=== PATIENT | female | born 1975 | race Caucasian/White ===

== ENCOUNTER 2020-10-06 07:14 | Inpatient (IN) | payer OTHER ==
[~2020-10-06] VITALS: Ht 165.1 cm; Wt 76.2 kg
[~2020-10-06 07:14] MED LIST: ASPIRIN EC81 MG PO; BUPRENORPHIN-N1 EACH PO; LOPRESSOR 25 MG25 MG PO; MULTAQ 400 MG400 MG PO; NICOTINE PATCH1 EAC2 TD
[2020-10-06 08:17] LABS: HEMOGLOBIN 17.5 gm/dl (12.3-15.3); RED BLOOD COUNT 5.73 M/UL (4.00-5.10); WHITE BLOOD COUNT 4.2 K/UL (4.5-11.0)
[2020-10-06 08:39] LABS: BUN/CREATININE RATIO 10 (0-10)
[2020-10-06] MEDS ORDERED: SOTALOL80 MG PO (15:24)
[2020-10-07 10:29] LABS: HEMOGLOBIN 17.5 gm/dl (12.3-15.3); RED BLOOD COUNT 5.95 M/UL (4.00-5.10)
[2020-10-07 10:32] LABS: WHITE BLOOD COUNT 6.1 K/UL (4.5-11.0)
[2020-10-07 11:00] LABS: BUN/CREATININE RATIO 16 (0-10)
[2020-10-08 04:23] LABS: HEMOGLOBIN 17.3 gm/dl (12.3-15.3); RED BLOOD COUNT 5.72 M/UL (4.00-5.10)
[2020-10-08 04:30] LABS: WHITE BLOOD COUNT 10.9 K/UL (4.5-11.0)
[2020-10-08 04:41] LABS: BUN/CREATININE RATIO 25 (0-10)
[2020-10-08] MEDS ORDERED: ELIQUIS 5 MG TAB5 MG PO (14:54)
== END 2020-10-08 15:29 | disposition home or self-care (01) | DRG 308 ==
LOC: ER1 07:14 → CDU 10:45 → PROG CARE 10:45
PROVIDERS: Emergency Medicine; Physician Assistant Medical; ADMIT Internal Medicine
PROC: 8E0ZXY6 Isolation (ICD-10-PCS; principal; 2020-10-06)
DX: I48.92 Unspecified atrial flutter (principal); U07.1 COVID-19; R51.9 Headache, unspecified; I51.9 Heart disease, unspecified; D72.819 Decreased white blood cell count, unspecified; D69.6 Thrombocytopenia, unspecified; F17.210 Nicotine dependence, cigarettes, uncomplicated; I48.0 Paroxysmal atrial fibrillation; R00.2 Palpitations; R94.31 Abnormal electrocardiogram [ECG] [EKG]; F19.10 Other psychoactive substance abuse, uncomplicated; Z98.51 Tubal ligation status; Z79.01 Long term (current) use of anticoagulants; Z83.6 Family history of other diseases of the respiratory system; Z79.82 Long term (current) use of aspirin
CPT/HCPCS: ECHO; 36415; 71045; 80048; 80053; 82550; 82553; 83735; 83874; 84439; 84443; 84484; 85025; 85027; 85379; 85610; 85730; 93005; 93306; 94640; 94664; 94760; 99285; J1100; J1160; J7030; U0002

== ENCOUNTER 2020-10-25 12:07 | Emergency (ER) | payer OTHER ==
[~2020-10-25 12:07] MED LIST changes: +ELIQUIS 5 MG TAB5 MG PO; +SOTALOL80 MG PO
[2020-10-25 13:04] LABS: RED BLOOD COUNT 4.86 M/UL (4.00-5.10); WHITE BLOOD COUNT 7.5 K/UL (4.5-11.0)
[2020-10-25 13:45] LABS: BUN/CREATININE RATIO 16 (0-10)
[2020-10-25] MEDS ORDERED: SOTALOL80 MG PO (14:56)
== END 2020-10-25 15:34 | disposition home or self-care (01) ==
LOC: ER1 12:07
PROVIDERS: Family Medicine
DX: I48.0 Paroxysmal atrial fibrillation (principal); I48.92 Unspecified atrial flutter; Z79.01 Long term (current) use of anticoagulants
CPT/HCPCS: 71045; 80053; 82550; 82553; 83874; 84484; 85025; 93005; 99285

== ENCOUNTER → 2021-09-30 | Outpatient (CLI) | payer OTHER | LOC: HEART 5 09-11 09:15 | DX: I20.9 Angina pectoris, unspecified (principal) | CPT/HCPCS: 78452; A9502 ==